=== PATIENT | female | born 1985 | race American Indian/Alaskan Native ===

== ENCOUNTER 2016-11-12 19:34 | Inpatient (IN) | payer OTHER ==
[2016-11-12] MEDS ORDERED: TYLENOL PO ONE (20:00)
[2016-11-12 20:23] LABS: Basophils % (Auto) 0.3 % (0.0-1.8); Eosinophils % (Auto) 0.7 % (0.0-4.3); Hematocrit 34.9 % (30.3-42.9); Hemoglobin 10.8 gm/dl (10.1-14.3); Mean Corpuscular HGB Conc 31 % (30-34); Platelet Count 341 K/mm3 (140-440); Red Blood Count 5.15 M/mm3 (3.65-5.03); Red Cell Distribution Width 19.2 % (13.2-15.2); White Blood Count 15.8 K/mm3 (4.5-11.0)
[2016-11-12 20:25] LABS: Mean Corpuscular Hemoglobin 21 pg (28-32); Mean Corpuscular Volume 68 fl (79-97)
[2016-11-12 21:07] LABS: Alanine Aminotransferase 8 units/L (7-56); Albumin 4.1 g/dL (3.9-5); Albumin/Globulin Ratio 1.1 %; Alkaline Phosphatase 64 units/L (35-129); Anion Gap 22 mmol/L; BUN/Creatinine Ratio 7.77; Bilirubin,Total 0.5 mg/dL (0.1-1.2); Blood Urea Nitrogen 7 mg/dL (7-17); Calcium 9.2 mg/dL (8.4-10.2); Carbon Dioxide 22 mmol/L (22-30); Chloride 99.3 mmol/L (98-107); Glucose 104 mg/dL (65-100); Lipase 15 units/L (13-60); Potassium 3.5 mmol/L (3.6-5.0); Sodium 140 mmol/L (137-145)
[2016-11-12 22:50] LABS: Bacteria,Urine 1+ /HPF (Negative); Bilirubin,Urine NEG (Negative); Blood,Urine MOD (Negative); Ketones,Urine NEG (Negative); Leukocyte Esterase,Urine NEG (Negative); Mucus,Urine FEW /HPF; Nitrite,Urine NEG (Negative); Protein,Urine <15 mg/dL mg/dL (Negative); Urobilinogen,Urine < 2.0 mg/dL (<2.0)
[2016-11-13] MEDS ORDERED: TYLENOL PO ONE (02:40)
[2016-11-13] MEDS ORDERED: SUBLIMAZE IV ONE (03:23)
[2016-11-13] MEDS ORDERED: NACL 0.9% 1000 ML 1,000 ML IV ONE (03:23)
[2016-11-13] MEDS ORDERED: ZOFRAN IV ONE (03:23)
--- NOTE | 2016-11-13 03:29 | Emergency Department Report ---
HPI - General Chief Complaint: Abdominal Pain Time Seen by Provider: 11/13/16 03:18 - HPI HPI: Room 7 The patient is a 31-year-old female presenting with a chief complaint flank/ right sided abdominal pain. Patient states for the past 4 days she has had a constant pain in her right abdomen. Patient admits to nausea but denies vomiting. Patient denies dysuria, hematuria, vaginal discharge or abnormal vaginal bleeding. Patient admits to subjective fever yesterday. Patient denies any previous episodes of the same pain. The patient currently gives her pain a score of 8/10 Location: Right abdomen Duration: 4 days Quality: Pain Severity: 8/10 Modifying factors: Movement increases pain Context: [see above] Mode of transportation: [not driving] ED Past Medical Hx - Past Medical History Hx Headaches / Migraines: Yes Hx Psychiatric Treatment: Yes (depression as a child) Additional medical history: uri - Surgical History Past Surgical History?: No Additional Surgical History: 4 c-sections - Family History Family history: no significant - Social History Smoking Status: Current Every Day Smoker (one pack per day) Substance Use Type: None (denies illicit drug use), Alcohol (occasional) - Medications Home Medications: Home Medications Medication Instructions Recorded Confirmed Last Taken Type Azithromycin [Zithromax Z-VAHID] 250 mg PO DAILY #6 tablet 10/21/13 Unknown Rx Benzonatate [Tessalon Perles] 100 mg PO BID PRN 7 Days 10/21/13 Unknown Rx Acetaminophen/Codeine [Tylenol #3] 1 tab PO Q6H PRN #21 tab 05/08/15 Unknown Rx Sulfamethoxazole/Trimethoprim 1 each PO BID #20 tablet 05/08/15 Unknown Rx [Bactrim DS TAB] Amoxicillin [Amoxicillin TAB] 875 mg PO BID #20 tablet 07/25/15 Unknown Rx Fluticasone [Flonase] 1 spray NS QDAY #1 bottle 07/25/15 Unknown Rx predniSONE [Deltasone] 20 mg PO QDAY #6 tab 07/25/15 Unknown Rx Sulfamethoxazole/Trimethoprim 1 each PO BID #20 tablet 09/02/15 Unknown Rx [Bactrim DS TAB] Acetaminophen/Codeine 1 tab PO Q6H PRN #20 tab 10/25/15 Unknown Rx [Acetaminophen-Codeine #3 TAB] Cyclobenzaprine [Flexeril 10 MG 10 mg PO TID PRN #30 tablet 10/25/15 Unknown Rx TAB] Ibuprofen [Motrin 600 MG tab] 600 mg PO Q8H PRN #40 tablet 10/25/15 Unknown Rx metroNIDAZOLE [Flagyl] 500 mg PO Q12HR #20 tab 10/25/15 Unknown Rx Naproxen [Naprosyn TAB] 500 mg PO BID #30 tablet 11/17/15 Unknown Rx traMADol [Ultram 50 MG tab] 50 mg PO Q6HR PRN #20 tablet 11/17/15 Unknown Rx Bacitracin Zinc Oint(Nf) 1 applicatio TP BID #1 tube 07/27/16 Unknown Rx [Antibiotic Oint(Nf)] Ferrous Sulfate [Feosol 325 MG tab] 325 mg PO QDAY #30 tablet 07/27/16 Unknown Rx Ibuprofen [Motrin] 800 mg PO Q8HR PRN #20 tablet 07/27/16 Unknown Rx ED Review of Systems ROS: Stated complaint: RT FLANK PAIN Other details as noted in HPI Comment: All other systems reviewed and negative Constitutional: fever (subjective) Eyes: denies: eye pain, eye discharge, vision change ENT: denies: ear pain, throat pain Respiratory: denies: cough, shortness of breath, wheezing Cardiovascular: denies: chest pain, palpitations Endocrine: no symptoms reported Gastrointestinal: abdominal pain, nausea. denies: vomiting Genitourinary: denies: urgency, dysuria, discharge, abnormal menses Musculoskeletal: denies: back pain, joint swelling, arthralgia Skin: denies: rash, lesions Neurological: denies: headache, weakness, paresthesias Psychiatric: denies: anxiety, depression Hematological/Lymphatic: denies: easy bleeding, easy bruising Physical Exam - Physical Exam Vital Signs: Vital Signs 11/12/16 19:46 Temperature 99.4 F Pulse Rate 123 H Respiratory 24 Rate Blood Pressure 130/72 Blood Pressure 130/72 [Right] O2 Sat by Pulse 100 Oximetry Physical Exam: GENERAL: The patient is well-developed well-nourished female lying on stretcher appearing to be in moderate discomfort. [] HEENT: Normocephalic. Atraumatic. Extraocular motions are intact. Patient has moist mucous membranes. NECK: Supple. Trachea midline CHEST/LUNGS: Clear to auscultation. There is no respiratory distress noted. HEART/CARDIOVASCULAR: Regular. There is no tachycardia. There is no gallop rub or murmur. ABDOMEN: Abdomen is soft, with tenderness to palpation in the right upper quadrant and right lower quadrant. Patient has normal bowel sounds. There is no abdominal distention. SKIN: There is no rash. There is no edema. There is no diaphoresis. NEURO: The patient is awake, alert, and oriented. The patient is cooperative. The patient has normal speech MUSCULOSKELETAL: There is no evidence of acute injury. ED Course Vital Signs 11/12/16 19:46 Temperature 99.4 F Pulse Rate 123 H Respiratory 24 Rate Blood Pressure 130/72 Blood Pressure 130/72 [Right] O2 Sat by Pulse 100 Oximetry ED Medical Decision Making - Lab Data Result diagrams: 11/12/16 20:09 11/12/16 20:09 Laboratory Tests 11/12/16 11/12/16 11/12/16 20:09 20:09 20:11 WBC 15.8 H RBC 5.15 H Hgb 10.8 Hct 34.9 MCV 68 L MCH 21 L MCHC 31 RDW 19.2 H Plt Count 341 Lymph % (Auto) 11.4 L [place] % (Auto) 11.3 H Eos % (Auto) 0.7 Baso % (Auto) 0.3 Lymph # 1.8 [place] # 1.8 H Eos # 0.1 Baso # 0.0 Seg Neutrophils % 76.3 H Seg Neutrophils # 12.1 H Sodium 140 Potassium 3.5 L Chloride 99.3 Carbon Dioxide 22 Anion Gap 22 BUN 7 Creatinine 0.9 Estimated GFR > 60 BUN/Creatinine Ratio 7.77 Glucose 104 H Calcium 9.2 Total Bilirubin 0.5 AST 10 ALT 8 Alkaline Phosphatase 64 Total Protein 8.0 Albumin 4.1 Albumin/Globulin Ratio 1.1 Lipase 15 HCG, Qual Negative Urine Color Urine Turbidity Urine pH Ur Specific [place] Urine Protein Urine Glucose (UA) Urine Ketones Urine Blood Urine Nitrite Urine Bilirubin Urine Urobilinogen Ur Leukocyte Esterase Urine WBC (Auto) Urine RBC (Auto) U Epithel Cells (Auto) Urine Bacteria (Auto) Urine Mucus Urine HCG, Qual 11/12/16 11/12/16 22:13 22:13 WBC RBC Hgb Hct MCV MCH MCHC RDW Plt Count Lymph % (Auto) [place] % (Auto) Eos % (Auto) Baso % (Auto) Lymph # [place] # Eos # Baso # Seg Neutrophils % Seg Neutrophils # Sodium Potassium Chloride Carbon Dioxide Anion Gap BUN Creatinine Estimated GFR BUN/Creatinine Ratio Glucose Calcium Total Bilirubin AST ALT Alkaline Phosphatase Total Protein Albumin Albumin/Globulin Ratio Lipase HCG, Qual Urine Color Yellow Urine Turbidity Clear Urine pH 6.0 Ur Specific [place] 1.002 L Urine Protein <15 mg/dl Urine Glucose (UA) Neg Urine Ketones Neg Urine Blood Mod Urine Nitrite Neg Urine Bilirubin Neg Urine Urobilinogen < 2.0 Ur Leukocyte Esterase Neg Urine WBC (Auto) 3.0 Urine RBC (Auto) 3.0 U Epithel Cells (Auto) < 1.0 Urine Bacteria (Auto) 1+ Urine Mucus Few Urine HCG, Qual Negative - Radiology Data Radiology results: report reviewed (CT abdomen and pelvis), image reviewed (CT abdomen and pelvis) - Differential Diagnosis acute appendicitis, renal colic, Critical care attestation.: If time is entered above; I have spent that time in minutes in the direct care of this critically ill patient, excluding procedure time. ED Disposition Clinical Impression: Pelvic fluid collection, Abnormal finding on diagnostic imaging of right kidney , Acute abdominal pain Disposition: OP ADMITTED IP TO THIS HOSP Is pt being admited?: Yes Does the pt Need Aspirin: No Condition: Fair Instructions: Abdominal Pain (ED) Referrals: PRIMARY CARE, [Primary Care Provider] - 3-5 Days Time of Disposition: 06:58 (hospitalist notified)
[2016-11-13] MEDS ORDERED: DILAUDID IV ONE (05:46)
--- NOTE | 2016-11-13 06:51 | Cat Scan Report ---
FINAL REPORT PROCEDURE: CT ABDOMEN PELVIS W CON TECHNIQUE: Computerized axial tomography of the abdomen and pelvis was performed after the IV injection of iodinated nonionic contrast. HISTORY: right flank, right lower quadrant abdominal pain COMPARISON: No prior studies are available for comparison. FINDINGS: Visualized lower thorax: There is minimal atelectasis in the lung bases.. Liver: Normal size and attenuation. Spleen: Normal size and attenuation. Gallbladder and biliary system: Normal. Pancreas: Normal. Adrenals: Normal. Kidneys: There is no CT evidence of renal ureteral stone or hydronephrosis. There is a 1.6 centimeter heterogenous slightly hypodense focus in the anterior mid upper right kidney. This is centered on image 58 of series 3 and image 15 of series 4. This measures above fluid in density. However this is a contrast scan only which makes density measurements difficult. However this does not appear to be a simple cyst. It could be a debris or hemorrhage filled cyst. However solid mass such as neoplasm is not excluded. It may even demonstrate some patchy enhancement.. GI tract: The bowel appears unremarkable when considering lack of oral contrast. The appendix is somewhat difficult to identify but I believe I do see it.. Lymph nodes and mesentery: Normal. Vasculature: Normal. Bladder: Normal. Reproductive organs: In the deep pelvis posterior to the uterus in the midline and slightly to the left of midline there is a somewhat curvilinear partially flattened fluid-filled structure with a moderately thick enhancing wall. This measures about 4.8 centimeters transverse by 1.5 centimeters AP by about 4.9 centimeter superior to inferior. Measurements are somewhat difficult due to its curvilinear shape conforming to the posterior aspect of the uterus or cervix. This is centered on image 142 of series 3. It is also seen on sagittal series 201, image 83. This is suspicious for abscess. The exact cause is uncertain. Peritoneum: No free fluid. Musculoskeletal structures: No significant abnormality. Other: None. IMPRESSION: 1. There is a fluid collection with an enhancing wall in the midline deep pelvis posterior to the uterus and the cervix. This has a somewhat curvilinear shape and measure roughly about 4.9 x 4.8 x 1.5 centimeters. This is suspicious for a abscess. The cause of this abscess is uncertain. It could be related to pelvic inflammatory disease. Abscess of other cause or fluid collection of other etiology is not excluded. Follow-up recommended. 2. Incidentally noted is a 1.6 centimeter heterogenous slightly hypodense focus in the right kidney as detailed above. This is measuring above simple fluid and may even show partial enhancement. This could be a debris or hemorrhage filled cyst. However a small solid lesion such as renal cell carcinoma or other tumor of the kidney is not excluded. Therefore further workup of this recommended. Given its small size it may be of benefit to further evaluate this with kidney MRI to see if this can help distinguish debris-filled cyst versus solid neoplastic lesion. If MRI is not possible or desired then a kidney ultrasound would be recommended. This finding is likely incidental and unrelated to the patient's acute symptoms but should still be followed up and further evaluated.
--- NOTE | 2016-11-13 07:23 | Admit Criteria Form ---
Admission Criteria Documentation: PELVIC INFLAMMATORY DISEASE (PID), ACUTE Clinical Indications for Admission to Inpatient Care (Place 'X' for any and all applicable criteria): Admission is indicated for PID with ANY ONE of the following (1)(2)(3)(4)(5): [ ]I. [ ]II. Failure of outpatient regimen [ ]III. Tubo-ovarian abscess [ ]IV. Immunodeficiency state (eg, HIV infection with low CD4 count, immunosuppressive therapy, other disease causing immunodeficiency) [ ]V. Bacteremia [ ]. Hemodynamic instability [X]VII. Inpatient admission required rather than observation care (Also use Pelvic Inflammatory Disease (PID), Acute: as appropriate) because of ANY ONE of the following: [ ]a) Vomiting that is severe or persistent [X]b) Severe pain requiring acute inpatient management [ ]c) Etiology or finding that requires inpatient management (eg, ovarian torsion, peritonitis) [ ]d) IV fluid required rather than oral rehydration to replace significant ongoing (eg, for greater than 24 hours) losses (greater than 200 mL/hr or 3 L/m2 per day) [ ]e) Other condition, treatment or monitoring requiring inpatient admission Extended stay beyond goal length of stay may be needed for (2)(14) [ ]a) Tubo-ovarian abscess, peritonitis, or continued pain, fever, tenderness, or leukocytosis The original [employer] content created by [employer] has been revised. The portions of the content which have been revised are identified through the use of italic text or in bold, and [facility] has neither reviewed nor approved the modified material. All other unmodified content is copyright [facility]. Please see references footnoted in the original [email or web address] edition 2016 Admission Criteria Met: Yes
--- NOTE | 2016-11-13 09:23 | History and Physical Report ---
History of Present Illness Date of examination: 11/13/16 History of present illness: The patient is a 31-year-old female presenting with a chief complaint flank/ right sided abdominal pain. Patient states for the past 4 days she has had a constant pain in her right abdomen. Patient admits to nausea but denies vomiting. Patient denies dysuria, hematuria, vaginal discharge or abnormal vaginal bleeding. Patient admits to subjective fever yesterday. Patient denies any previous episodes of the same pain. The patient currently gives her pain a score of 8/10 Medications and Allergies Allergies Allergy/AdvReac Type Severity Reaction Status Date / Time chlorpromazine HCl Allergy Swelling Verified 10/20/13 20:48 [From Thorazine] Home Medications Medication Instructions Recorded Confirmed Last Taken Type Azithromycin [Zithromax Z-VAHID] 250 mg PO DAILY #6 tablet 10/21/13 Unknown Rx Benzonatate [Tessalon Perles] 100 mg PO BID PRN 7 Days 10/21/13 Unknown Rx Acetaminophen/Codeine [Tylenol #3] 1 tab PO Q6H PRN #21 tab 05/08/15 Unknown Rx Sulfamethoxazole/Trimethoprim 1 each PO BID #20 tablet 05/08/15 Unknown Rx [Bactrim DS TAB] Amoxicillin [Amoxicillin TAB] 875 mg PO BID #20 tablet 07/25/15 Unknown Rx Fluticasone [Flonase] 1 spray NS QDAY #1 bottle 07/25/15 Unknown Rx predniSONE [Deltasone] 20 mg PO QDAY #6 tab 07/25/15 Unknown Rx Sulfamethoxazole/Trimethoprim 1 each PO BID #20 tablet 09/02/15 Unknown Rx [Bactrim DS TAB] Acetaminophen/Codeine 1 tab PO Q6H PRN #20 tab 10/25/15 Unknown Rx [Acetaminophen-Codeine #3 TAB] Cyclobenzaprine [Flexeril 10 MG 10 mg PO TID PRN #30 tablet 10/25/15 Unknown Rx TAB] Ibuprofen [Motrin 600 MG tab] 600 mg PO Q8H PRN #40 tablet 10/25/15 Unknown Rx metroNIDAZOLE [Flagyl] 500 mg PO Q12HR #20 tab 10/25/15 Unknown Rx Naproxen [Naprosyn TAB] 500 mg PO BID #30 tablet 11/17/15 Unknown Rx traMADol [Ultram 50 MG tab] 50 mg PO Q6HR PRN #20 tablet 11/17/15 Unknown Rx Bacitracin Zinc Oint(Nf) 1 applicatio TP BID #1 tube 07/27/16 Unknown Rx [Antibiotic Oint(Nf)] Ferrous Sulfate [Feosol 325 MG tab] 325 mg PO QDAY #30 tablet 07/27/16 Unknown Rx Ibuprofen [Motrin] 800 mg PO Q8HR PRN #20 tablet 07/27/16 Unknown Rx Review of Systems Genitourinary Female: pelvic pain, flank pain Exam - Constitutional Vitals: Temp Pulse Resp BP Pulse Ox 99.4 F 89 16 107/69 100 11/12/16 19:46 11/13/16 07:15 11/13/16 07:15 11/13/16 07:15 11/13/16 07:15 General appearance: Present: mild distress - EENT Eyes: Present: PERRL, EOM intact ENT: hearing intact, clear oral mucosa - Neck Neck: Present: supple, normal ROM - Respiratory Respiratory effort: normal Respiratory: bilateral: CTA - Cardiovascular Rhythm: regular Heart Sounds: Present: S1 & S2 - Extremities Extremities: no ischemia, No edema - Abdominal General gastrointestinal: Present: soft, tender, non-distended, normal bowel sounds, other (right flank tenderness) - Musculoskeletal Musculoskeletal: strength equal bilaterally - Psychiatric Psychiatric: appropriate mood/affect, intact judgment & insight - Neurologic Neurologic: CNII-XII intact, moves all extremities Results - Labs CBC & Chem 7: 11/12/16 20:09 11/12/16 20:09 Labs: Laboratory Last Values WBC 15.8 K/mm3 (4.5-11.0) H 11/12/16 20:09 RBC 5.15 M/mm3 (3.65-5.03) H 11/12/16 20:09 Hgb 10.8 gm/dl (10.1-14.3) 11/12/16 20:09 Hct 34.9 % (30.3-42.9) 11/12/16 20:09 MCV 68 fl (79-97) L 11/12/16 20:09 MCH 21 pg (28-32) L 11/12/16 20:09 MCHC 31 % (30-34) 11/12/16 20:09 RDW 19.2 % (13.2-15.2) H 11/12/16 20:09 Plt Count 341 K/mm3 (140-440) 11/12/16 20:09 Lymph % (Auto) 11.4 % (13.4-35.0) L 11/12/16 20:09 [place] % (Auto) 11.3 % (0.0-7.3) H 11/12/16 20:09 Eos % (Auto) 0.7 % (0.0-4.3) 11/12/16 20:09 Baso % (Auto) 0.3 % (0.0-1.8) 11/12/16 20:09 Lymph # 1.8 K/mm3 (1.2-5.4) 11/12/16 20:09 [place] # 1.8 K/mm3 (0.0-0.8) H 11/12/16 20:09 Eos # 0.1 K/mm3 (0.0-0.4) 11/12/16 20:09 Baso # 0.0 K/mm3 (0.0-0.1) 11/12/16 20:09 Seg Neutrophils % 76.3 % (40.0-70.0) H 11/12/16 20:09 Seg Neutrophils # 12.1 K/mm3 (1.8-7.7) H 11/12/16 20:09 Sodium 140 mmol/L (137-145) 11/12/16 20:09 Potassium 3.5 mmol/L (3.6-5.0) L 11/12/16 20:09 Chloride 99.3 mmol/L (98-107) 11/12/16 20:09 Carbon Dioxide 22 mmol/L (22-30) 11/12/16 20:09 Anion Gap 22 mmol/L 11/12/16 20:09 BUN 7 mg/dL (7-17) 11/12/16 20:09 Creatinine 0.9 mg/dL (0.7-1.2) 11/12/16 20:09 Estimated GFR > 60 ml/min 11/12/16 20:09 BUN/Creatinine Ratio 7.77 % 11/12/16 20:09 Glucose 104 mg/dL (65-100) H 11/12/16 20:09 Calcium 9.2 mg/dL (8.4-10.2) 11/12/16 20:09 Total Bilirubin 0.5 mg/dL (0.1-1.2) 11/12/16 20:09 AST 10 units/L (5-40) 11/12/16 20:09 ALT 8 units/L (7-56) 11/12/16 20:09 Alkaline Phosphatase 64 units/L (35-129) 11/12/16 20:09 Total Creatine Kinase 46 units/L (30-135) 11/12/16 20:09 Total Protein 8.0 g/dL (6.3-8.2) 11/12/16 20:09 Albumin 4.1 g/dL (3.9-5) 11/12/16 20:09 Albumin/Globulin Ratio 1.1 % 11/12/16 20:09 Lipase 15 units/L (13-60) 11/12/16 20:09 HCG, Qual Negative (Negative) 11/12/16 20:11 Urine Color Yellow (Yellow) 11/12/16 22:13 Urine Turbidity Clear (Clear) 11/12/16 22:13 Urine pH 6.0 (5.0-7.0) 11/12/16 22:13 Ur Specific [place] 1.002 (1.003-1.030) L 11/12/16 22:13 Urine Protein <15 mg/dl mg/dL (Negative) 11/12/16 22:13 Urine Glucose (UA) Neg mg/dL (Negative) 11/12/16 22:13 Urine Ketones Neg mg/dL (Negative) 11/12/16 22:13 Urine Blood Mod (Negative) 11/12/16 22:13 Urine Nitrite Neg (Negative) 11/12/16 22:13 Urine Bilirubin Neg (Negative) 11/12/16 22:13 Urine Urobilinogen < 2.0 mg/dL (<2.0) 11/12/16 22:13 Ur Leukocyte Esterase Neg (Negative) 11/12/16 22:13 Urine WBC (Auto) 3.0 /HPF (0.0-6.0) 11/12/16 22:13 Urine RBC (Auto) 3.0 /HPF (0.0-6.0) 11/12/16 22:13 U Epithel Cells (Auto) < 1.0 /HPF (0-13.0) 11/12/16 22:13 Urine Bacteria (Auto) 1+ /HPF (Negative) 11/12/16 22:13 Urine Mucus Few /HPF 11/12/16 22:13 Urine HCG, Qual Negative (Negative) 11/12/16 22:13 Assessment and Plan - Patient Problems (1) Pelvic mass in female Current Visit: Yes Status: Acute Plan to address problem: Patient presented with right flank pain and CT scan of the abdomen and pelvis shows a right pelvic mass versus pelvic abscess. Possibly related to pelvic inflammatory disease. We'll start on IV antibiotics. We will get [employer] consult and surgical evaluation (2) Abnormal finding on diagnostic imaging of right kidney Current Visit: Yes Status: Acute Plan to address problem: Of incidental note, there is an possible right kidney cyst. We will get nephrology involvement (3) Acute abdominal pain Current Visit: Yes Status: Acute Plan to address problem: Acute abdominal pain possibly related to right pelvic mass versus abscess. We will start workup. Will continue IV pain meds
[2016-11-13] MEDS: D5NS 1,000 ML IV SCH ×2 (09:52→19:27)
[2016-11-13] MEDS: PERCOCET 5/325 PO PRN (09:52)
[2016-11-13] MEDS ORDERED: LOVENOX SUB-Q SCH (10:00)
[2016-11-13] MEDS ORDERED: ROCEPHIN/NS 2 GM/100 ML 2 GM/100 ML BAG IV SCH ×2 (10:00→11:30)
[2016-11-13] MEDS ORDERED: DULCOLAX PR PRN (10:00)
[2016-11-13] MEDS ORDERED: TYLENOL PO PRN (10:00)
[2016-11-13] MEDS ORDERED: FLEXERIL PO PRN (10:30)
[2016-11-13] MEDS ORDERED: MILK OF MAGNESIA PO PRN (10:30)
[2016-11-13] MEDS ORDERED: ULTRAM PO PRN (11:00)
[2016-11-13] MEDS ORDERED: DOXYCYCLINE HYCLATE 100 MG in NACL 0.9% 250ML 250 ML IV SCH (11:00)
[2016-11-13] MEDS: LOVENOX SUB-Q SCH (11:38)
[2016-11-13] MEDS: FEOSOL PO SCH (11:38)
[2016-11-13] MEDS: MORPHINE IV PRN ×2 (15:35→20:03)
--- NOTE | 2016-11-13 20:13 | Event Note ---
Date: 11/13/16 Received page for consult at 8pm. After review of chart recommend changing antibiotics to Ampicillin 2 gm iv q6, Gentamicin 80 mg iv q 8 and Cleocin 900mg iv q 8. This will better cover a pelvic abscess. Recommend pelvic sono to better evaluate possible abscess. Will peform full consult in am.
[2016-11-13] MEDS: GARAMYCIN/NS 80 MG/100 ML 100 ML IV SCH (22:30)
[2016-11-13] MEDS: CLEOCIN 900 MG/50 mL 900 MG/50 ML BAG IV SCH (23:00)
[2016-11-13] MEDS: ZOFRAN IV PRN (23:19)
[2016-11-14] MEDS: AMBIEN PO PRN (00:33)
[2016-11-14] MEDS: POLYCILLIN/NS 2 GM/100 ML 2 GM/100 ML BAG IV SCH ×4 (00:33→18:57)
[2016-11-14 05:05] LABS: Hemoglobin 8.6 gm/dl (10.1-14.3); Mean Corpuscular HGB Conc 32 % (30-34); Platelet Count 246 K/mm3 (140-440); Red Blood Count 4.01 M/mm3 (3.65-5.03); Red Cell Distribution Width 18.6 % (13.2-15.2); White Blood Count 8.3 K/mm3 (4.5-11.0)
[2016-11-14 05:13] LABS: Mean Corpuscular Hemoglobin 21 pg (28-32); Mean Corpuscular Volume 67 fl (79-97)
[2016-11-14] MEDS: MORPHINE IV PRN ×3 (05:22→14:29)
[2016-11-14 05:23] LABS: Alanine Aminotransferase 7 units/L (7-56); Albumin 2.8 g/dL (3.9-5); Albumin/Globulin Ratio 0.9 %; Alkaline Phosphatase 47 units/L (35-129); Anion Gap 15 mmol/L; BUN/Creatinine Ratio 4.28; Bilirubin,Total 0.2 mg/dL (0.1-1.2); Blood Urea Nitrogen 3 mg/dL (7-17); Calcium 7.5 mg/dL (8.4-10.2); Carbon Dioxide 22 mmol/L (22-30); Chloride 103.2 mmol/L (98-107); Glucose 91 mg/dL (65-100); Sodium 137 mmol/L (137-145)
[2016-11-14] MEDS: GARAMYCIN/NS 80 MG/100 ML 100 ML IV SCH (05:23)
[2016-11-14] MEDS: CLEOCIN 900 MG/50 mL 900 MG/50 ML BAG IV SCH ×3 (06:15→21:00)
[2016-11-14 06:23] LABS: Basophils % (Manual) 0 % (0.0-1.8); Blastocytes % (Manual) 0 %
[2016-11-14 06:24] LABS: Diff Status Complete; Elliptocytes 1+; Hypochromasia 2+; Microcytosis 1+; Polychromasia Few; Smudge Cells Few; Tear Drop Cells Rare
--- NOTE | 2016-11-14 07:21 | Consultation ---
History of Present Illness Consult date: 11/21/16 Requesting physician: ROSE PALOMINO Reason for consult: pelvic pain, other (pelvic abscess) History of present illness: Patient states abdominal pain and fever x 5 days. Pain has gotten progressively worse. Patient admits to nausea but no vomiting. Patient denies discharge. does not have a new partner. LMP 11/12/16-current. 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 patient receant pap and cultures which were negative) Medications and Allergies Allergies Allergy/AdvReac Type Severity Reaction Status Date / Time chlorpromazine HCl Allergy Swelling Verified 10/20/13 20:48 [From Thorazine] Home Medications Medication Instructions Recorded Confirmed Last Taken Type Azithromycin [Zithromax Z-VAHID] 250 mg PO DAILY #6 tablet 10/21/13 Unknown Rx Benzonatate [Tessalon Perles] 100 mg PO BID PRN 7 Days 10/21/13 Unknown Rx Acetaminophen/Codeine [Tylenol #3] 1 tab PO Q6H PRN #21 tab 05/08/15 Unknown Rx Sulfamethoxazole/Trimethoprim 1 each PO BID #20 tablet 05/08/15 Unknown Rx [Bactrim DS TAB] Amoxicillin [Amoxicillin TAB] 875 mg PO BID #20 tablet 07/25/15 Unknown Rx Fluticasone [Flonase] 1 spray NS QDAY #1 bottle 07/25/15 Unknown Rx predniSONE [Deltasone] 20 mg PO QDAY #6 tab 07/25/15 Unknown Rx Sulfamethoxazole/Trimethoprim 1 each PO BID #20 tablet 09/02/15 Unknown Rx [Bactrim DS TAB] Acetaminophen/Codeine 1 tab PO Q6H PRN #20 tab 10/25/15 Unknown Rx [Acetaminophen-Codeine #3 TAB] Cyclobenzaprine [Flexeril 10 MG 10 mg PO TID PRN #30 tablet 10/25/15 Unknown Rx TAB] Ibuprofen [Motrin 600 MG tab] 600 mg PO Q8H PRN #40 tablet 10/25/15 Unknown Rx metroNIDAZOLE [Flagyl] 500 mg PO Q12HR #20 tab 10/25/15 Unknown Rx Naproxen [Naprosyn TAB] 500 mg PO BID #30 tablet 02/24/16 Unknown Rx traMADol [Ultram 50 MG tab] 50 mg PO Q6HR PRN #20 tablet 11/17/15 Unknown Rx Bacitracin Zinc Oint(Nf) 1 applicatio TP BID #1 tube 07/27/16 Unknown Rx [Antibiotic Oint(Nf)] Ferrous Sulfate [Feosol 325 MG tab] 325 mg PO QDAY #30 tablet 07/27/16 Unknown Rx Ibuprofen [Motrin] 800 mg PO Q8HR PRN #20 tablet 07/27/16 Unknown Rx Active Meds: Active Medications Acetaminophen (Tylenol) 650 mg PO Q4H PRN PRN Reason: Pain MILD(1-3)/Fever >100.5/SLAUGHTER Last Admin: 11/13/16 17:24 Dose: 650 mg Bisacodyl (Dulcolax) 10 mg MI QDAY PRN PRN Reason: Constipation unrelieved by MOM Cyclobenzaprine HCl (Flexeril) 10 mg PO TID PRN PRN Reason: Muscle Spasm Enoxaparin Sodium (Lovenox) 40 mg SUB-Q QDAY@1000 SIRI Last Admin: 11/13/16 11:38 Dose: 40 mg Ferrous Sulfate (Feosol) 325 mg PO QDAY [facility] Last Admin: 11/13/16 11:38 Dose: 325 mg Dextrose/Sodium Chloride (D5ns) 1,000 mls @ 125 mls/hr IV DIRECT [facility] Last Admin: 11/13/16 19:27 Dose: 125 mls/hr Ampicillin Sodium (Polycillin/Ns 2 Gm/100 Ml) 2 gm in 100 mls @ 100 mls/hr IV Q6HR [facility] Stop: 11/15/16 18:59 Last Admin: 11/14/16 00:33 Dose: 100 mls/hr Clindamycin HCl (Cleocin 900 Mg/50 Ml) 900 mg in 50 mls @ 100 mls/hr IV Q8HR [facility] PRN Reason: Protocol Last Admin: 11/14/16 06:15 Dose: 100 mls/hr Gentamicin Sulfate/Sodium Chloride (Garamycin/Ns 80 Mg/100 Ml) 100 mls @ 200 mls/hr IV Q8H [facility] Last Admin: 11/14/16 05:23 Dose: 200 mls/hr Potassium Chloride (Kcl 10meq/100ml) 10 meq in 100 mls @ 100 mls/hr IV Q1H [facility] Stop: 11/14/16 09:59 Influenza Virus Vaccine Quadrival (Fluarix Quad [id number](36 Mos+)) 60 mcg IM .ONCE ONE Stop: 11/14/16 12:01 Magnesium Hydroxide (Milk Of Magnesia) 30 ml PO Q4H PRN PRN Reason: Constipation Morphine Sulfate (Morphine) 2 mg IV Q4H PRN PRN Reason: Pain, Moderate (4-6) Last Admin: 11/14/16 05:22 Dose: 2 mg Ondansetron HCl (Zofran) 4 mg IV Q8H PRN PRN Reason: Nausea And Vomiting Last Admin: 11/13/16 23:19 Dose: 4 mg Oxycodone/Acetaminophen (Percocet 5/325) 1 tab PO Q6H PRN PRN Reason: Pain, Moderate (4-6) Last Admin: 11/13/16 09:52 Dose: 1 tab Tramadol HCl (Ultram) 50 mg PO Q6H PRN PRN Reason: Pain Last Admin: 11/13/16 23:12 Dose: 50 mg Zolpidem Tartrate (Ambien) 5 mg PO QHS PRN PRN Reason: Sleep Last Admin: 11/14/16 00:33 Dose: 5 mg Review of Systems All systems: negative Constitutional: poor appetite, other (nausea) Gastrointestinal: abdominal pain - Vital Signs Vital signs: Vital Signs Temp Pulse Resp BP Pulse Ox 99.4 F 123 H 24 130/72 100 11/12/16 19:46 11/12/16 19:46 11/12/16 19:46 11/12/16 19:46 11/12/16 19:46 Temp Pulse Resp BP Pulse Ox 99.1 F 75 18 119/76 100 11/13/16 22:40 11/13/16 22:40 11/13/16 22:40 11/13/16 22:40 11/13/16 22:40 - Physical Exam Breasts: Positive: deferred Cardiovascular: Regular rate, Normal S1, Normal S2 Lungs: Positive: Clear to auscultation Abdomen: Positive: normal appearance, soft, tenderness (tenderness is right sided. no rebound. ), normal bowel sounds. Negative: distention Vulva: both: normal Vagina: Positive: normal moisture. Negative: discharge Cervix: Positive: other (There is no evidence of cervical motion tenderness on exam, no left sided tenderness. Tenderness is more right flank extending medially. ). Negative: lesion, discharge Uterus: Positive: normal size, normal contour Adnexa: both: normal Anus/Rectum: Positive: normal perianal skin, heme negative. Negative: rectal mass, hemorrhoids Extremities: Deep Tendon Reflex Grade: Normal +2 Results Result Diagrams: 11/14/16 04:08 11/14/16 04:07 Abnormal lab results 11/14/16 11/14/16 Range/Units 04:07 04:08 Hgb 8.6 L (10.1-14.3) gm/dl Hct 27.0 L D (30.3-42.9) % MCV 67 L (79-97) fl MCH 21 L (28-32) pg RDW 18.6 H (13.2-15.2) % Monocytes % (Manual) 9.0 H (0.0-7.3) % Potassium 3.0 L (3.6-5.0) mmol/L BUN 3 L (7-17) mg/dL Calcium 7.5 L D (8.4-10.2) mg/dL Total Protein 6.0 L D (6.3-8.2) g/dL Albumin 2.8 L (3.9-5) g/dL All other labs normal. Assessment and Plan HD 2, for Right sided abdominal pain, pelvic mass/ abscess. Assessment- PID/ with pelvic abscess very unlikely for this patient since she has had a tubal ligation and the pain and tenderness is only right sided. Appendicitis is more likely in this patient. Thank you for the consult.
[2016-11-14] MEDS: LOVENOX SUB-Q SCH (09:27)
[2016-11-14] MEDS: FEOSOL PO SCH (09:27)
[2016-11-14] MEDS: KCL 10MEQ/100ML 10 MEQ/100 ML BAG IV SCH ×3 (09:29→16:47)
[2016-11-14] MEDS: ZOFRAN IV PRN ×2 (09:39→21:02)
[2016-11-14] MEDS: D5NS 1,000 ML IV SCH (11:38)
[2016-11-14] MEDS ORDERED: FLUARIX QUAD 2016-2017(36 MOS+) IM ONE (12:00)
--- NOTE | 2016-11-14 13:49 | Progress Note ---
Assessment and Plan Assessment and Plan 1. Pelvic mass versus Pelvic abscess: Presently on IV antibiotics. 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 Thinks etiology of right sided abdominal pain is appendicitis. Will consult surgery. 2. Abdominal pain likely secondary to #1: Presently on IV antibiotics and pain meds. Will consult surgery. 3. Hypokalemia: Will replete. 4. Possible Right kidney cyst: Will consider MRI or US of right kidney as recommended. Subjective Date of service: 11/14/16 Principal diagnosis: Flank pain, Pelvic mass Interval history: Still has right sided abdominal pain that is controlled with pain meds. Objective - Constitutional Vitals: Vital Signs - 12hr 11/14/16 11/14/16 07:10 10:00 Temperature 99.6 F Pulse Rate [ 80 Right] Respiratory 16 Rate Blood Pressure 108/68 [Right Arm] O2 Sat by Pulse 100 99 Oximetry General appearance: Present: no acute distress, well-nourished - EENT Eyes: PERRL, EOM intact ENT: hearing intact, clear oral mucosa Ears: bilateral: normal - Neck Neck: supple, normal ROM - Respiratory Respiratory effort: normal Respiratory: bilateral: CTA - Breasts Breasts: normal - Cardiovascular Rhythm: regular Heart Sounds: Present: S1 & S2. Absent: gallop, rub Extremities: pulses intact, No edema, normal color, Full ROM - Gastrointestinal General gastrointestinal: Present: soft, non-tender, non-distended, normal bowel sounds - Genitourinary Female genitourinary: normal - Integumentary Integumentary: clear, warm, dry - Musculoskeletal Musculoskeletal: 1, strength equal bilaterally - Neurologic Neurologic: moves all extremities - Psychiatric Psychiatric: memory intact, appropriate mood/affect, intact judgment & insight - Labs CBC & Chem 7: 11/14/16 04:08 11/14/16 04:07 Labs: Abnormal lab results 11/14/16 11/14/16 Range/Units 04:07 04:08 Hgb 8.6 L (10.1-14.3) gm/dl Hct 27.0 L D (30.3-42.9) % MCV 67 L (79-97) fl MCH 21 L (28-32) pg RDW 18.6 H (13.2-15.2) % Monocytes % (Manual) 9.0 H (0.0-7.3) % Potassium 3.0 L (3.6-5.0) mmol/L BUN 3 L (7-17) mg/dL Calcium 7.5 L D (8.4-10.2) mg/dL Total Protein 6.0 L D (6.3-8.2) g/dL Albumin 2.8 L (3.9-5) g/dL
[2016-11-14] MEDS: PERCOCET 5/325 PO PRN (16:02)
[2016-11-14] MEDS ORDERED: GARAMYCIN 300 MG in NACL 0.9% 100 ML IV SCH (18:00)
[2016-11-14] MEDS ORDERED: ATIVAN IV PRN (21:32)
[2016-11-14] MEDS: PROTONIX IV SCH (21:54)
[2016-11-15] MEDS: POLYCILLIN/NS 2 GM/100 ML 2 GM/100 ML BAG IV SCH ×4 (01:00→18:11)
[2016-11-15] MEDS: MORPHINE IV PRN ×6 (01:31→23:35)
[2016-11-15] MEDS: D5NS 1,000 ML IV SCH ×2 (05:28→18:14)
[2016-11-15] MEDS: CLEOCIN 900 MG/50 mL 900 MG/50 ML BAG IV SCH ×3 (05:29→22:39)
[2016-11-15] MEDS: ZOFRAN IV PRN ×2 (05:30→13:24)
--- NOTE | 2016-11-15 08:56 | Ultrasound Report ---
ULTRASOUND PELVIC COMPLETE: ULTRASOUND TRANSVAGINAL: HISTORY: Right pelvic pain, possible abscess on CT. TECHNIQUE: Transabdominal and transvaginal ultrasound imaging with color Doppler interrogation. FINDINGS: The CT abdomen and pelvis with contrast dated 11/13/16 was reviewed. In my opinion, the curvilinear fluid collection described within the pelvis represents fluid within the vaginal canal. Please correlate with the patient's menstrual status. This is not consistent with an abscess in my opinion. The uterus is anteverted and measures 11 x 4 x 6 cm. No uterine fibroids are identified. The endometrial stripe is normal thickness measuring approximately 5 mm. There is trace fluid and debris within the endometrial canal suggestive of menstruation products. No mass or polyp is appreciated. The right ovary measures 3.8 x 1.9 x 2.6 cm. The left ovary measures 4.8 x 1.7 x 4.3 cm. Normal-appearing follicles are identified bilaterally. There is trace fluid in the cul-de-sac which appears physiologic. Normal cervix. IMPRESSION: Essentially normal transabdominal and transvaginal pelvic ultrasounds. No fluid collection consistent with abscess is detected. I believe the previously described fluid collection seen on CT actually represents fluid within the vaginal canal. Please correlate with the patient's menstrual status.
[2016-11-15 09:03] LABS: Anion Gap 18 mmol/L; Blood Urea Nitrogen 2 mg/dL (7-17); Calcium 8.1 mg/dL (8.4-10.2); Carbon Dioxide 24 mmol/L (22-30); Chloride 100.9 mmol/L (98-107); Glucose 94 mg/dL (65-100); Potassium 3.2 mmol/L (3.6-5.0); Sodium 140 mmol/L (137-145)
[2016-11-15] MEDS: LOVENOX SUB-Q SCH (09:58)
[2016-11-15] MEDS: FEOSOL PO SCH (09:59)
[2016-11-15] MEDS: PROTONIX IV SCH (09:59)
--- NOTE | 2016-11-15 12:07 | Progress Note ---
Assessment and Plan Assessment and Plan 1. Pelvic mass versus Pelvic abscess: Transabdominal and transvaginal pelvic ultrasound showed no fluid collection consistent with abscess, previously described fluid collection seen on CT represents fluid within the vaginal canal. Presently on IV antibiotics. Surgical consult. 2. Abdominal pain likely secondary to #1: Surgical consult. Presently on IV antibiotics and pain meds. 3. Hypokalemia: Will continue to replete. Subjective Date of service: 11/15/16 Principal diagnosis: Flank pain, Pelvic mass Interval history: No overnight events. Objective - Constitutional Vitals: Vital Signs - 12hr 11/15/16 11/15/16 07:55 09:33 Temperature 98.6 F Pulse Rate [ 77 Right] Respiratory 16 Rate Blood Pressure 113/77 [Right Arm] O2 Sat by Pulse 99 99 Oximetry General appearance: Present: no acute distress, well-nourished - EENT Eyes: PERRL, EOM intact ENT: hearing intact, clear oral mucosa Ears: bilateral: normal - Neck Neck: supple, normal ROM - Respiratory Respiratory effort: normal Respiratory: bilateral: CTA - Breasts Breasts: normal - Cardiovascular Rhythm: regular Heart Sounds: Present: S1 & S2. Absent: gallop, rub Extremities: pulses intact, No edema, normal color, Full ROM - Gastrointestinal General gastrointestinal: Present: soft, non-tender, non-distended, normal bowel sounds - Genitourinary Female genitourinary: normal - Integumentary Integumentary: clear, warm, dry - Musculoskeletal Musculoskeletal: 1, strength equal bilaterally - Neurologic Neurologic: moves all extremities - Psychiatric Psychiatric: memory intact, appropriate mood/affect, intact judgment & insight - Labs CBC & Chem 7: 11/14/16 04:08 11/15/16 08:21 Labs: Abnormal lab results 11/15/16 Range/Units 08:21 Potassium 3.2 L (3.6-5.0) mmol/L BUN 2 L (7-17) mg/dL Calcium 8.1 L (8.4-10.2) mg/dL
[2016-11-15] MEDS: K-DUR PO SCH (15:21)
[2016-11-15] MEDS: PROTONIX PO SCH (22:42)
[2016-11-15] MEDS: GARAMYCIN 300 MG in NACL 0.9% 100 ML IV SCH (23:32)
--- NOTE | 2016-11-16 00:12 | Progress Note ---
Subjective Narrative: Pt was seen this AM for RT flank pain CT ,US all negative , a small ? lesion Rt kidney cyst ? doubt if it is the source of the pain , Abd soft and mary gn Muscle spasm ?? for a MRI Rt kidney in AM . Objective Vital Signs - 12hr 11/15/16 15:55 Temperature 99 F Pulse Rate [ 64 Right] Respiratory 15 Rate Blood Pressure 118/86 [Right Arm] O2 Sat by Pulse 100 Oximetry - Labs 11/14/16 04:08 11/15/16 08:21 Diabetes panel 11/15/16 Range/Units 08:21 Sodium 140 (137-145) mmol/L Potassium 3.2 L (3.6-5.0) mmol/L Chloride 100.9 (98-107) mmol/L Carbon Dioxide 24 (22-30) mmol/L BUN 2 L (7-17) mg/dL Creatinine 0.8 (0.7-1.2) mg/dL Glucose 94 (65-100) mg/dL Calcium 8.1 L (8.4-10.2) mg/dL Calcium panel 11/15/16 Range/Units 08:21 Calcium 8.1 L (8.4-10.2) mg/dL Pituitary panel 11/15/16 Range/Units 08:21 Sodium 140 (137-145) mmol/L Potassium 3.2 L (3.6-5.0) mmol/L Chloride 100.9 (98-107) mmol/L Carbon Dioxide 24 (22-30) mmol/L BUN 2 L (7-17) mg/dL Creatinine 0.8 (0.7-1.2) mg/dL Glucose 94 (65-100) mg/dL Calcium 8.1 L (8.4-10.2) mg/dL Adrenal panel 11/15/16 Range/Units 08:21 Sodium 140 (137-145) mmol/L Potassium 3.2 L (3.6-5.0) mmol/L Chloride 100.9 (98-107) mmol/L Carbon Dioxide 24 (22-30) mmol/L BUN 2 L (7-17) mg/dL Creatinine 0.8 (0.7-1.2) mg/dL Glucose 94 (65-100) mg/dL Calcium 8.1 L (8.4-10.2) mg/dL
[2016-11-16] MEDS: PERCOCET 5/325 PO PRN (01:49)
[2016-11-16] MEDS: CLEOCIN 900 MG/50 mL 900 MG/50 ML BAG IV SCH ×3 (06:32→22:05)
[2016-11-16] MEDS: D5NS 1,000 ML IV SCH (06:33)
[2016-11-16] MEDS: MORPHINE IV PRN ×4 (06:33→22:09)
[2016-11-16] MEDS: FEOSOL PO SCH (10:06)
[2016-11-16] MEDS: K-DUR PO SCH (10:06)
[2016-11-16] MEDS: LOVENOX SUB-Q SCH (10:32)
[2016-11-16] MEDS: PROTONIX PO SCH ×2 (10:32→22:07)
--- NOTE | 2016-11-16 11:03 | Progress Note ---
Assessment and Plan Assessment and Plan 1. Abdominal pain: CT scan and US were unremarkable. Surgery following. Presently on pain meds. 2. Renal cyst: For MRI. 3. Hypokalemia: will supplement Subjective Date of service: 11/16/16 Principal diagnosis: Flank pain, Pelvic mass Interval history: Still having flank pain. Objective - Constitutional Vitals: Vital Signs - 12hr 11/16/16 11/16/16 00:00 10:00 Temperature 97.9 F Pulse Rate [ 53 L Right Dorsalis Pedis] Respiratory 18 Rate Blood Pressure 116/70 [Left Arm] O2 Sat by Pulse 100 100 Oximetry General appearance: Present: no acute distress, well-nourished - EENT Eyes: PERRL, EOM intact ENT: hearing intact, clear oral mucosa Ears: bilateral: normal - Neck Neck: supple, normal ROM - Respiratory Respiratory effort: normal Respiratory: bilateral: CTA - Breasts Breasts: normal - Cardiovascular Rhythm: regular Heart Sounds: Present: S1 & S2. Absent: gallop, rub Extremities: pulses intact, No edema, normal color, Full ROM - Gastrointestinal General gastrointestinal: Present: soft, non-tender, non-distended, normal bowel sounds - Genitourinary Female genitourinary: normal - Integumentary Integumentary: clear, warm, dry - Musculoskeletal Musculoskeletal: 1, strength equal bilaterally - Neurologic Neurologic: moves all extremities - Psychiatric Psychiatric: memory intact, appropriate mood/affect, intact judgment & insight - Labs CBC & Chem 7: 11/14/16 04:08 11/15/16 08:21
--- NOTE | 2016-11-16 12:58 | Progress Note ---
Subjective Narrative: Pt In MRI will check , talked to to ? 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 If MRI negative , she may go home. Objective Vital Signs - 12hr 11/16/16 11/16/16 08:14 10:00 Temperature 98.0 F Pulse Rate [ 51 L Right Dorsalis Pedis] Respiratory 16 Rate Blood Pressure 90/51 [Left Arm] O2 Sat by Pulse 98 100 Oximetry - Labs 11/14/16 04:08 11/15/16 08:21
--- NOTE | 2016-11-16 16:07 | Magnetic Resonance Report ---
MRI of the abdomen with and without contrast. History: Right renal lesion seen on CT, right flank pain. Procedure: A multiplanar multisequence study was performed with and without contrast. Findings: The liver, spleen, pancreas, and left kidney appear normal. The precontrast study demonstrates equivocal small area of signal abnormality in the upper pole of the right kidney which is more pronounced on the postcontrast sequences. There are areas of hypoperfusion in the lateral aspect of the upper pole of the right kidney. The overall size of the diminished signal in this region has decreased compared to the recent abdominal CT performed on November 13. The abnormality now measures approximately 1 cm in total diameter compared to 1.6 cm on the recent CT. There is no exophytic component. There is minimal fluid in the pararenal space on the right. The remainder of the right kidney is normal. There is a round hypointense area in the gallbladder seen best on the T2 weighted sequence. This may represent a gallstone. There is no evidence of biliary dilatation. Impression: 1. A small lesion in the lateral aspect of the upper pole the right kidney demonstrates very subtle signal abnormality with hypoperfusion on the postcontrast study. Compared to an abdominal CT performed on November 13, this lesion has decreased in size and may represent a resolving infectious process. If clinically appropriate, a followup renal ultrasound or CT of the abdomen may be useful after appropriate medical management. 2. Possible gallstone. Correlation with gallbladder ultrasound is recommended.
[2016-11-16] MEDS: AMBIEN PO PRN (22:07)
[2016-11-16] MEDS: KCL 10MEQ/100ML 10 MEQ/100 ML BAG IV SCH (22:16)
[2016-11-16] MEDS: GARAMYCIN 300 MG in NACL 0.9% 100 ML IV SCH (22:44)
[2016-11-17] MEDS: KCL 10MEQ/100ML 10 MEQ/100 ML BAG IV SCH (00:22)
[2016-11-17] MEDS: CLEOCIN 900 MG/50 mL 900 MG/50 ML BAG IV SCH (05:09)
[2016-11-17] MEDS: MORPHINE IV PRN ×2 (07:00→10:27)
[2016-11-17 07:55] VITALS: BP 106/68
--- NOTE | 2016-11-17 10:18 | Discharge Summary ---
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 Hospitalization Condition: Fair Disposition: DISCHARGED TO HOME OR SELFCARE Time spent for discharge: 35 mins Core Measure Documentation - Palliative Care Palliative Care/ Comfort Measures: Not Applicable - Core Measures Any of the following diagnoses?: none - VTE Discharge Requirements Deep Vein Thrombosis/Pulmonary Embolism Present on Admission: No Exam - Constitutional Vitals: Temp Pulse Resp BP Pulse Ox 98.5 F 58 L 16 106/68 98 11/17/16 07:53 11/17/16 07:53 11/17/16 07:53 11/17/16 07:53 11/17/16 07:53 Plan Activity: advance as tolerated, fall precautions Diet: low fat Special Instructions: record daily BP diary Follow up with: MELIDA PEREZ MD [Primary Care Provider] - 3-5 Days KELLY DAWN MD [Staff Physician] - 7 Days Prescriptions: Ciprofloxacin HCl [Ciprofloxacin TAB] 500 mg PO Q12HR #14 tab Ketorolac [Toradol] 10 mg PO Q6H PRN #14 tablet PRN Reason: Pain metroNIDAZOLE [Flagyl TAB] 500 mg PO Q12HR #20 tab Naproxen [Naprosyn TAB] 500 mg PO BID #30 tablet oxyCODONE /ACETAMINOPHEN [Percocet 5/325 mg] 1 tab PO Q6H PRN #14 tablet PRN Reason: Pain, Moderate (4-6)
[2016-11-17] MEDS: FEOSOL PO SCH (10:33)
[2016-11-17] MEDS: PROTONIX PO SCH (10:33)
[2016-11-17] MEDS: K-DUR PO SCH (10:33)
[2016-11-17] MEDS: LOVENOX SUB-Q SCH (10:34)
[2016-11-17] MEDS: PERCOCET 5/325 PO PRN (13:57)
--- NOTE | 2016-11-17 14:16 | Progress Note ---
Subjective Patient Reports: Positive: feels better, flatus, bowel movement Narrative: Doing better pain gone on ampicillin , to see me in 2 weeks US showed large GB stone and a polyp in the GB Objective Vital Signs - 12hr 11/17/16 07:53 Temperature 98.5 F Pulse Rate [ 58 L Right Dorsalis Pedis] Respiratory 16 Rate Blood Pressure 106/68 [Left Arm] O2 Sat by Pulse 98 Oximetry - Labs 11/14/16 04:08 11/15/16 08:21
--- NOTE | 2016-11-17 14:53 | Ultrasound Report ---
ULTRASOUND ABDOMEN LIMITED INDICATION: Pain. COMPARISON: None similar. Correlated to recent CT and MRI findings. FINDINGS: Right upper quadrant ultrasound demonstrates normal hepatic contours and echotexture without focal suspicious lesion or biliary dilatation. Approximately 1 cm shadowing possible gallstone near the gallbladder neck, image 58. Another 6-7 mm non-shadowing gallbladder polyp possible, image 71. No pericholecystic fluid or positive sonographic Benson sign. Gallbladder wall thickness is 2.6 mm. Common bile duct is 2.1 mm. Visualized pancreas, IVC and abdominal aorta within normal limits. Nonhydronephrotic right kidney measures 11.2 x 4.3 x 5.1 cm with cortical thickness of 1.6 cm. Subtle 1.6 cm right upper renal cortical lesion not well identified sonographically. CONCLUSION: 1. No acute right upper quadrant sonographic abnormality with a gallstone and gallbladder polyp suspected, as described. 2. Approximately 1.6 cm right renal cortical lesion known by prior cross sectional imaging not identified sonographically. Its etiology hence not determined on this exam alone and given this limitation, may be followed up in the future with dedicated renal mass protocol CT or MRI. Also, direct comparison with prior abdominal CT or MRI would be very helpful to avoid further workup, if available from an outside institution. Thank you for the opportunity to participate in this patient's care.
== END 2016-11-17 14:00 | disposition home or self-care (01) | DRG 392 ==
LOC: ED 19:34 → 3A 11-13 09:26 → 4A 11-13 14:18 → 3A 11-13 21:03
PROVIDERS: ADMIT Internal Medicine; ATTEND Internal Medicine
DX: R19.00 Intra-abdominal and pelvic swelling, mass and lump, unspecified site (principal); E87.6 Hypokalemia; N73.9 Female pelvic inflammatory disease, unspecified; Z98.51 Tubal ligation status; Z88.8 Allergy status to other drugs, medicaments and biological substances
CPT/HCPCS: 36415; 74177; 74183; 76705; 76830; 76856; 80048; 80053; 81001; 81025; 82550; 83690; 84703; 85007; 85025; 90686; 94760; 96361; 96365; 96372; 96375; 99406; A9577; C9113; J0290; J0696; J1170; J1580; J1650; J2060; J2270; J2405; J3010; J3480; J7030; J7042; J7050; Q9967

== ENCOUNTER 2017-08-03 13:14 | Emergency (ER) | payer SELFPAY ==
[2017-08-03 16:03] LABS: Basophils % (Auto) 0.5 % (0.0-1.8); Eosinophils % (Auto) 3.8 % (0.0-4.3); Hematocrit 32.2 % (30.3-42.9); Hemoglobin 10.1 gm/dl (10.1-14.3); Mean Corpuscular HGB Conc 32 % (30-34); Mean Corpuscular Volume 71 fl (79-97); Platelet Count 302 K/mm3 (140-440); Red Blood Count 4.51 M/mm3 (3.65-5.03); Red Cell Distribution Width 17.9 % (13.2-15.2); White Blood Count 11.1 K/mm3 (4.5-11.0)
[2017-08-03 16:04] LABS: Mean Corpuscular Hemoglobin 22 pg (28-32)
[2017-08-03 16:41] LABS: Alanine Aminotransferase 19 units/L (7-56); Albumin/Globulin Ratio 1.3 %; Alkaline Phosphatase 49 units/L (35-129); Anion Gap 16 mmol/L; BUN/Creatinine Ratio 22; Blood Urea Nitrogen 13 mg/dL (7-17); Calcium 8.8 mg/dL (8.4-10.2); Carbon Dioxide 23 mmol/L (22-30); Chloride 103.6 mmol/L (98-107); Glucose 78 mg/dL (65-100); Potassium 3.9 mmol/L (3.6-5.0); Sodium 139 mmol/L (137-145); Total Protein 7.2 g/dL (6.3-8.2)
--- NOTE | 2017-08-03 16:50 | Cat Scan Report ---
CT HEAD WITHOUT CONTRAST INDICATION: Head injury. COMPARISON: 07/26/2016. FINDINGS: Noncontrast head CT demonstrates normal ventricles and sulci without acute or recent infarct, hemorrhage, mass effect or midline shift. No abnormal extra-axial fluid collections. Posterior fossa structures and basilar cisterns appear within normal limits. Overall improved sinusitis with mild right frontal, right sphenoid and left maxillary sinus mucosal thickening now remaining. Clear remainder imaged paranasal sinuses and mastoid air cells. Intact calvarium. Normal overlying scalp soft tissues. Oral piercing ornament now seen with stable mild to moderate C5-C6 degenerative changes. CONCLUSION: No acute intracranial CT abnormality with few other findings, as described. Thank you for the opportunity to participate in this patient's care.
[2017-08-03 17:21] LABS: Bilirubin,Urine NEG (Negative); Blood,Urine SM (Negative); Ketones,Urine NEG (Negative); Leukocyte Esterase,Urine NEG (Negative); Mucus,Urine 2+ /HPF; Nitrite,Urine NEG (Negative); Protein,Urine <15 mg/dL mg/dL (Negative); Urobilinogen,Urine < 2.0 mg/dL (<2.0); WBC,Urine < 1.0 /HPF (0.0-6.0)
[2017-08-03] MEDS ORDERED: TYLENOL PO ONE (22:28)
[2017-08-03] MEDS ORDERED: TYLENOL ONE (22:30)
[2017-08-04] MEDS ORDERED: TORADOL IM ONE (02:32)
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
[2017-08-04] MEDS ORDERED: VALIUM PO ONE (04:03)
--- NOTE | 2017-08-04 05:13 | Cat Scan Report ---
FINAL REPORT EXAM: CT ABDOMEN PELVIS WO CON HISTORY: TRAUMA TECHNIQUE: Routine axial imaging was obtained of the abdomen pelvis without oral or IV contrast. Comparison is made the study of 11/13/2016. FINDINGS: The lung bases are clear. Pleural fluid is not seen. The liver, gallbladder, pancreas, spleen, and adrenal glands appear normal. The kidneys show no evidence of stones or hydronephrosis. The bowel loops are normal in caliber and course. There is no evidence of free fluid or adenopathy. In the pelvis the uterus and bladder appear normal. The skeletal structures are well-maintained. IMPRESSION: No acute process in the abdomen and pelvis. The previous described lesion in the right kidney cannot be seen without IV contrast and cannot be assessed at this time.
[2017-08-04 05:37] VITALS: BP 115/78
--- NOTE | 2017-08-04 09:15 | XRay Report ---
XRAY RIGHT TIBIA AND FIBULA TWO VIEWS: 08/04/17 CLINICAL: Trauma and pain. FINDINGS: No fracture or dislocation. Normal alignment at the knee and at the ankle. No knee joint effusion. Normal soft tissues.No soft tissue air or foreign body. IMPRESSION: Normal
== END 2017-08-04 05:50 | disposition home or self-care (01) ==
LOC: ED 13:14
DX: S00.03XA Contusion of scalp, initial encounter (principal); S10.93XA Contusion of unspecified part of neck, initial encounter; S20.222A Contusion of left back wall of thorax, initial encounter; S20.221A Contusion of right back wall of thorax, initial encounter; S80.01XA Contusion of right knee, initial encounter; G43.909 Migraine, unspecified, not intractable, without status migrainosus; F12.10 Cannabis abuse, uncomplicated; Z88.8 Allergy status to other drugs, medicaments and biological substances; Y09 Assault by unspecified means; Y93.89 Activity, other specified; Y92.89 Other specified places as the place of occurrence of the external cause; Y99.8 Other external cause status
CPT/HCPCS: 36415; 70450; 73590; 74176; 80053; 81001; 84703; 85025; 96372; 99284; J1885

== ENCOUNTER 2017-10-05 19:02 | Emergency (ER) | payer SELFPAY ==
[2017-10-05] MEDS ORDERED: MOTRIN PO ONE (20:35)
[2017-10-05] MEDS ORDERED: ZOFRAN ODT PO ONE (20:36)
--- NOTE | 2017-10-06 05:18 | Emergency Department Report ---
HPI - General Chief Complaint: Upper Respiratory Infection Time Seen by Provider: 10/06/17 04:42 - HPI HPI: Patient here reports that she isn't having cough, congestion and headache runny nose and body ache. She said she's been having nasal congestion and runny nose for over a week but she started having body aches over the last 3 days with chills. [id number] cough and cold medication does not help. Pain is 10 out of 10 and generalized, achy. Denies any abdominal or back pain. Denies any urinary burning frequency or urgency. Last menstrual period was 2016. She denies any shortness of breath or chest pain. Patient said that she was around someone that was sick who went back to check,. ED Past Medical Hx - Past Medical History Previous Medical History?: Yes Hx Congestive Heart Failure: No Hx Diabetes: No Hx Headaches / Migraines: Yes Hx Psychiatric Treatment: Yes (depression as a child) Hx Asthma: No Hx COPD: No Additional medical history: uri - Surgical History Past Surgical History?: Yes Additional Surgical History: 4 c-sections - Family History Family history: hypertension - Social History Smoking Status: Never Smoker Substance Use Type: None - Medications Home Medications: Home Medications Medication Instructions Recorded Confirmed Last Taken Type Ferrous Sulfate [Feosol 325 MG tab] 325 mg PO QDAY #30 tablet 07/27/16 Unknown Rx Ciprofloxacin HCl [Ciprofloxacin 500 mg PO Q12HR #14 tab 11/17/16 Unknown Rx TAB] Ketorolac [Toradol] 10 mg PO Q6H PRN #14 tablet 11/17/16 Unknown Rx Naproxen [Naprosyn TAB] 500 mg PO BID #30 tablet 11/17/16 Unknown Rx metroNIDAZOLE [Flagyl TAB] 500 mg PO Q12HR #20 tab 11/17/16 Unknown Rx oxyCODONE /ACETAMINOPHEN [Percocet 1 tab PO Q6H PRN #14 tablet 11/17/16 Unknown Rx 5/325 mg] ALBUTEROL Inhaler [ProAir HFA 2 puff IH QID PRN #1 pump 07/26/17 Unknown Rx Inhaler] Acetamin/Codeine 120-12Mg/5 ml 5 ml PO TID PRN #60 ml 07/26/17 Unknown Rx [Tylenol/Codeine] Azithromycin [Zithromax TAB] 250 mg PO ONCE #4 tablet 07/26/17 Unknown Rx Cyclobenzaprine [Flexeril 10 MG 10 mg PO TID PRN #30 tablet 07/26/17 Unknown Rx TAB] Amoxicillin/K Clav Tab [Augmentin 1 tab PO Q12HR 10 Days #20 tab 10/06/17 Unknown Rx 875 mg] Cetirizine HCl [Zyrtec] 10 mg PO QAM 14 Days #14 tablet 10/06/17 Unknown Rx Fluticasone [Flonase] 1 spray NS QDAY 14 Days #1 bottle 10/06/17 Unknown Rx Ibuprofen [Motrin 800 MG tab] 800 mg PO Q8HR PRN 4 Days #12 10/06/17 Unknown Rx tablet Promethazine /Codeine 5 ml PO Q12H PRN 5 Days #50 ml 10/06/17 Unknown Rx [Phenergan/Codeine 6.25-10 mg/5Ml] ED Review of Systems ROS: Stated complaint: FLU LIKE SYMPTOMS Other details as noted in HPI Comment: All other systems reviewed and negative Constitutional: chills, fever Eyes: denies: eye pain, eye discharge ENT: congestion. denies: ear pain, throat pain, dental pain Respiratory: cough. denies: orthopnea, shortness of breath, SOB with exertion, SOB at rest, stridor, wheezing Cardiovascular: denies: chest pain, palpitations, dyspnea on exertion, orthopnea , edema, syncope, paroxysmal nocturnal dyspnea Gastrointestinal: denies: abdominal pain, nausea, vomiting, diarrhea, constipation, hematemesis, melena, hematochezia Genitourinary: denies: urgency, dysuria, frequency, hematuria, discharge Musculoskeletal: myalgia. denies: back pain, joint swelling, arthralgia Skin: denies: rash Neurological: headache. denies: weakness, numbness, paresthesias, confusion, abnormal gait, vertigo Physical Exam - Physical Exam Vital Signs: Vital Signs 10/05/17 10/06/17 20:29 02:14 Temperature 99.7 F H 98.9 F Pulse Rate 100 H Respiratory 20 Rate Blood Pressure 125/93 O2 Sat by Pulse 100 Oximetry General: This is a 32-year-old female well-nourished well-developed in no acute distress. Physical Exam: Head: Normocephalic atraumatic Ears:BIateral TM congested without erythema and loss of bony landmarks. Baldev EAC with normal exam. No mastoid bone tenderness. Mouth: Moist, no pharyngeal erythema or exudate . No tonsillar erythema or exudate. UVULA midline and oral airways patent. No peritonsillar abscess Neck: Nontender to palpate, supple, normal range of motion. No adenopathy. No c- spine tenderness. Nose: Bilateral nasal mucosa congested , erythema with clear drainage. Maxillary and frontal sinuses tender to palpate. Extremity: No clubbing, cyanosis or edema. +2 pulses all extremities. No neurovascular compromise Eyes: Sclerae and conjunctiva without injection. Bilateral pupils equal and reactive to light. Bilateral lids are normal. Normal accommodation.BEOMI Lungs: Clear to auscultate bilaterally, no rhonchi wheezes or rales. Normal work of breathing and no chest wall tenderness. Dry cough CV: S1, S2. Regular rate and rhythm negative murmur. Capillary refill is less than 3 seconds Skin: Clean dry and intact, no rashes or lesions Psych: Normal mood and behavior ED Course Vital Signs 10/05/17 10/06/17 20:29 02:14 Temperature 99.7 F H 98.9 F Pulse Rate 100 H Respiratory 20 Rate Blood Pressure 125/93 O2 Sat by Pulse 100 Oximetry - Reevaluation(s) Reevaluation #1: 10/06/17 06:05 Patient given Zofran 8 mg ODT and Motrin 800 mg while in the emergency room. Her fever is not down to 98.9 .patient able to tolerate oral liquids without any difficulties. She denies any pain at present. ED Medical Decision Making - Lab Data Influenza A and B- - Medical Decision Making ED course: This is a 32-year-old female well-nourished well-developed in no acute distress. Patient here complaining of flulike symptoms. Influenza A and B is negative. Patient found to have acute sinusitis which I believe started off as viral but now is bacterial due to fever and tenderness to palpate at maxillary and frontal sinuses. Patient lungs sounds are clear and she is not having any respiratory distress. I discussed with the patient her diagnosis, treatment plan and follow-up and she voiced understanding. Patient given Motrin 800 mg by mouth and Zofran 8 mg ODT with relief of symptoms. Discharged home with her family with prescription for Augmentin, Flonase, Zyrtec and promethazine with codeine. Critical care attestation.: If time is entered above; I have spent that time in minutes in the direct care of this critically ill patient, excluding procedure time. ED Disposition Clinical Impression: Cough in adult, Fever in adult Sinusitis, acute Qualifiers: Sinusitis location: unspecified location Recurrence: recurrent Qualified Code(s ): J01.91 - Acute recurrent sinusitis, unspecified Disposition: - TO HOME OR SELFCARE Is pt being admited?: No Does the pt Need Aspirin: No Condition: Stable Instructions: Sinusitis (ED), Fever in Adults (ED), Acute Cough (ED) Additional Instructions: Please increase her fluid intake to 2-3 L of fluid per day. Should include orange juice and water. These refrain from drinking soda take antibiotic as takes Zyrtec and Flonase to help relieve congestion take Motrin and this will help with fever and body ache Please do not drive or operate heavy machinery while taken codeine with Phenergan as this medication causes drowsiness F/U with primary care physician as instructed and if he do not have a primary care your can follow-up at [facility] in 3-5 days and her take Motrin Prescriptions: Amoxicillin/K Clav Tab [Augmentin 875 mg] 1 tab PO Q12HR 10 Days #20 tab Cetirizine HCl [Zyrtec] 10 mg PO QAM 14 Days #14 tablet Fluticasone [Flonase] 1 spray NS QDAY 14 Days #1 bottle Ibuprofen [Motrin 800 MG tab] 800 mg PO Q8HR PRN 4 Days #12 tablet PRN Reason: Pain Promethazine /Codeine [Phenergan/Codeine 6.25-10 mg/5Ml] 5 ml PO Q12H PRN 5 Days #50 ml PRN Reason: cough Referrals: [facility] [Outside] - 3-5 Days Forms: Accompanied Note, Work/School Release Form(ED)
[2017-10-06 06:12] VITALS: BP 93/67
== END 2017-10-06 06:30 | disposition home or self-care (01) ==
LOC: ED 19:02
DX: J01.91 Acute recurrent sinusitis, unspecified (principal); G43.909 Migraine, unspecified, not intractable, without status migrainosus; F32.9 Major depressive disorder, single episode, unspecified; Z88.8 Allergy status to other drugs, medicaments and biological substances; Z98.890 Other specified postprocedural states
CPT/HCPCS: 87400; 99282; Q0162

== ENCOUNTER 2017-10-07 00:56 | Emergency (ER) | payer SELFPAY ==
[2017-10-07 01:38] VITALS: BP 102/70
[2017-10-07 07:51] LABS: Bilirubin,Urine NEG (Negative); Blood,Urine NEG (Negative); Color,Urine Yellow (Yellow); Mucus,Urine 1+ /HPF; Nitrite,Urine NEG (Negative); Protein,Urine <15 mg/dL mg/dL (Negative); Urobilinogen,Urine < 2.0 mg/dL (<2.0)
[2017-10-07 08:03] LABS: HCG Qualitative,Urine Negative (Negative)
[2017-10-07] MEDS ORDERED: TORADOL IM ONE (08:31)
[2017-10-07] MEDS ORDERED: TORADOL ONE (08:37)
--- NOTE | 2017-10-07 09:13 | Cat Scan Report ---
FINAL REPORT EXAM: CT ABDOMEN PELVIS WO CON HISTORY: flank pain TECHNIQUE: CT images obtained through the Abdomen and Pelvis without contrast. Transaxial,coronal and sagittal reformats are provided. PRIORS: 08/04/2017 FINDINGS: Imaged intrathoracic contents are unremarkable. Kidneys are normal in size, axis and position. No hydronephrosis or nephrolithiasis. The ureters are normal in course and caliber. No stones are seen within the urinary bladder. Pelvic phleboliths are noted. The liver, gallbladder, pancreas, spleen, and adrenal glands demonstrate a normal noncontrast appearance. Hollow enteric organs are normal in course and caliber. Appendix is normal. No intra-abdominal free air/fluid or lymphadenopathy. Aorta is normal in course and caliber. Anteverted uterus. Trace free fluid in the pelvis is likely physiologic. Superficial soft tissues are unremarkable. No acute or aggressive appearing skeletal findings. IMPRESSION: No CT evidence of obstructive urolithiasis or other acute abdominal or pelvic findings. Free fluid in the pelvis is likely physiologic. If there is concern for gynecologic etiology of patient's symptoms, consider follow-up pelvic ultrasound.
--- NOTE | 2017-10-07 11:24 | Emergency Department Report ---
ED General Adult HPI - General Chief complaint: Back Pain/Injury Stated complaint: ABDOMINAL,BACK PAIN Time Seen by Provider: 10/07/17 08:25 Source: patient Mode of arrival: Ambulatory Limitations: No Limitations - History of Present Illness Initial comments: Patient is a 32-year-old female who is presenting with back pain. Patient states that she was here yesterday diagnosed with upper respiratory infection/sinus infection. Patient did get her prescriptions filled. Patient states that over the last 24 hours she has developed some increased back pain and flank pain. Patient states pain is 7 out of 10 in severity as a sharp aching pain. Patient denies any nausea vomiting diarrhea or dysuria vaginal discharge at this time. Patient does note that she has a history of gallstones she is hurting bilateral flanks. Severity scale (0 -10): 10 Improves with: none Worsens with: none - Related Data Previous Rx's Medication Instructions Recorded Last Taken Type Ferrous Sulfate [Feosol 325 MG tab] 325 mg PO QDAY #30 tablet 07/27/16 Unknown Rx Ciprofloxacin HCl [Ciprofloxacin 500 mg PO Q12HR #14 tab 11/17/16 Unknown Rx TAB] Ketorolac [Toradol] 10 mg PO Q6H PRN #14 tablet 11/17/16 Unknown Rx Naproxen [Naprosyn TAB] 500 mg PO BID #30 tablet 11/17/16 Unknown Rx metroNIDAZOLE [Flagyl TAB] 500 mg PO Q12HR #20 tab 11/17/16 Unknown Rx oxyCODONE /ACETAMINOPHEN [Percocet 1 tab PO Q6H PRN #14 tablet 11/17/16 Unknown Rx 5/325 mg] ALBUTEROL Inhaler [ProAir HFA 2 puff IH QID PRN #1 pump 07/26/17 Unknown Rx Inhaler] Acetamin/Codeine 120-12Mg/5 ml 5 ml PO TID PRN #60 ml 07/26/17 Unknown Rx [Tylenol/Codeine] Azithromycin [Zithromax TAB] 250 mg PO ONCE #4 tablet 07/26/17 Unknown Rx Cyclobenzaprine [Flexeril 10 MG 10 mg PO TID PRN #30 tablet 07/26/17 Unknown Rx TAB] Amoxicillin/K Clav Tab [Augmentin 1 tab PO Q12HR 10 Days #20 tab 10/06/17 Unknown Rx 875 mg] Cetirizine HCl [Zyrtec] 10 mg PO QAM 14 Days #14 tablet 10/06/17 Unknown Rx Fluticasone [Flonase] 1 spray NS QDAY 14 Days #1 bottle 10/06/17 Unknown Rx Ibuprofen [Motrin 800 MG tab] 800 mg PO Q8HR PRN 4 Days #12 10/06/17 Unknown Rx tablet Promethazine /Codeine 5 ml PO Q12H PRN 5 Days #50 ml 10/06/17 Unknown Rx [Phenergan/Codeine 6.25-10 mg/5Ml] Ibuprofen [Motrin] 800 mg PO Q8HR PRN #15 tablet 10/07/17 Unknown Rx traMADol [Ultram] 50 mg PO Q6HR PRN #12 tablet 10/07/17 Unknown Rx Allergies Allergy/AdvReac Type Severity Reaction Status Date / Time chlorpromazine HCl Allergy Swelling Verified 07/25/17 21:07 [From Thorazine] ED Review of Systems ROS: Stated complaint: ABDOMINAL,BACK PAIN Other details as noted in HPI Comment: All other systems reviewed and negative ED Past Medical Hx - Past Medical History Hx Congestive Heart Failure: No Hx Diabetes: No Hx Headaches / Migraines: Yes Hx Psychiatric Treatment: Yes (depression as a child) Hx Asthma: No Hx COPD: No Additional medical history: uri - Surgical History Additional Surgical History: 4 c-sections - Social History Smoking Status: Never Smoker - Medications Home Medications: Home Medications Medication Instructions Recorded Confirmed Last Taken Type Ferrous Sulfate [Feosol 325 MG tab] 325 mg PO QDAY #30 tablet 07/27/16 Unknown Rx Ciprofloxacin HCl [Ciprofloxacin 500 mg PO Q12HR #14 tab 11/17/16 Unknown Rx TAB] Ketorolac [Toradol] 10 mg PO Q6H PRN #14 tablet 11/17/16 Unknown Rx Naproxen [Naprosyn TAB] 500 mg PO BID #30 tablet 11/17/16 Unknown Rx metroNIDAZOLE [Flagyl TAB] 500 mg PO Q12HR #20 tab 11/17/16 Unknown Rx oxyCODONE /ACETAMINOPHEN [Percocet 1 tab PO Q6H PRN #14 tablet 11/17/16 Unknown Rx 5/325 mg] ALBUTEROL Inhaler [ProAir HFA 2 puff IH QID PRN #1 pump 07/26/17 Unknown Rx Inhaler] Acetamin/Codeine 120-12Mg/5 ml 5 ml PO TID PRN #60 ml 07/26/17 Unknown Rx [Tylenol/Codeine] Azithromycin [Zithromax TAB] 250 mg PO ONCE #4 tablet 07/26/17 Unknown Rx Cyclobenzaprine [Flexeril 10 MG 10 mg PO TID PRN #30 tablet 07/26/17 Unknown Rx TAB] Amoxicillin/K Clav Tab [Augmentin 1 tab PO Q12HR 10 Days #20 tab 10/06/17 Unknown Rx 875 mg] Cetirizine HCl [Zyrtec] 10 mg PO QAM 14 Days #14 tablet 10/06/17 Unknown Rx Fluticasone [Flonase] 1 spray NS QDAY 14 Days #1 bottle 10/06/17 Unknown Rx Ibuprofen [Motrin 800 MG tab] 800 mg PO Q8HR PRN 4 Days #12 10/06/17 Unknown Rx tablet Promethazine /Codeine 5 ml PO Q12H PRN 5 Days #50 ml 10/06/17 Unknown Rx [Phenergan/Codeine 6.25-10 mg/5Ml] Ibuprofen [Motrin] 800 mg PO Q8HR PRN #15 tablet 10/07/17 Unknown Rx traMADol [Ultram] 50 mg PO Q6HR PRN #12 tablet 10/07/17 Unknown Rx ED Physical Exam - General Limitations: No Limitations General appearance: alert, in no apparent distress - Head Head exam: Present: atraumatic, normocephalic - Eye Eye exam: Present: normal appearance - ENT ENT exam: Present: mucous membranes moist - Neck Neck exam: Present: normal inspection - Respiratory Respiratory exam: Present: normal lung sounds bilaterally. Absent: respiratory distress - Cardiovascular Cardiovascular Exam: Present: regular rate, normal rhythm. Absent: systolic murmur, diastolic murmur, rubs, gallop - GI/Abdominal GI/Abdominal exam: Present: soft, normal bowel sounds - Extremities Exam Extremities exam: Present: normal inspection - Back Exam Back exam: Present: normal inspection - Neurological Exam Neurological exam: Present: alert, oriented X3 - Psychiatric Psychiatric exam: Present: normal affect, normal mood - Skin Skin exam: Present: warm, dry, intact, normal color. Absent: rash ED Course Vital Signs 10/07/17 10/07/17 01:14 01:35 Temperature 98.9 F 98.9 F Pulse Rate 99 H 102 H Respiratory 18 17 Rate Blood Pressure 102/72 102/70 O2 Sat by Pulse 98 99 Oximetry ED Medical Decision Making - Radiology Data Radiology results: report reviewed CT abdomen and pelvis without contrast is negative for obstructive uropathy or other acute pathology at this time Critical care attestation.: If time is entered above; I have spent that time in minutes in the direct care of this critically ill patient, excluding procedure time. ED Disposition Clinical Impression: Myalgia Disposition: - TO HOME OR SELFCARE Is pt being admited?: No Does the pt Need Aspirin: No Condition: Stable Instructions: Musculoskeletal Pain (ED) Prescriptions: Ibuprofen [Motrin] 800 mg PO Q8HR PRN #15 tablet PRN Reason: Pain traMADol [Ultram] 50 mg PO Q6HR PRN #12 tablet PRN Reason: Pain Referrals: RAYNA BYRNES MD [Primary Care Provider] - 3-5 Days
== END 2017-10-07 12:00 | disposition home or self-care (01) ==
LOC: ED 00:56
DX: M79.1 Myalgia (principal); G43.909 Migraine, unspecified, not intractable, without status migrainosus; F32.9 Major depressive disorder, single episode, unspecified
CPT/HCPCS: 74176; 81001; 81025; 96372; 99284; J1885

== ENCOUNTER 2021-07-27 13:23 | Emergency (ER) | payer SELFPAY ==
[2021-07-27] MEDS ORDERED: ALBUTEROL 2.5 MG/3 ML NEBU IH ONE (13:49)
[2021-07-27] MEDS ORDERED: methylPREDNISolone Sod Succinate 125 MG/2 ML INJ IM ONE (13:49)
--- NOTE | 2021-07-27 16:45 | Emergency Department Report ---
ED General Adult HPI - General Chief complaint: Upper Respiratory Infection Stated complaint: SINUS INFECTION Time Seen by Provider: 07/27/21 13:48 Source: patient Mode of arrival: Ambulatory Limitations: No Limitations - History of Present Illness Initial comments: 35-year-old female admitted to vaginosis emerge department complaining of a few day history of progressively worsening cough cold congestion and now increased nasal pressure, productive cough and occasional wheezing. Reports no hemoptysis no hematemesis hematochezia, no nausea, no vomiting, no diarrhea. No known contact with the coronavirus but states that she is out of her asthma medication at home as well. Quality: dull Consistency: constant Improves with: none Worsens with: none Associated Symptoms: cough. denies: chest pain, malaise, syncope, weakness Treatments Prior to Arrival: none - Related Data Previous Rx's Medication Instructions Recorded Last Taken Type Ferrous Sulfate [Feosol 325 MG tab] 325 mg PO QDAY #30 tablet 07/27/16 Unknown Rx Ciprofloxacin HCl [Ciprofloxacin 500 mg PO Q12HR #14 tab 11/17/16 Unknown Rx TAB] Ketorolac [Toradol] 10 mg PO Q6H PRN #14 tablet 11/17/16 Unknown Rx Naproxen [Naprosyn TAB] 500 mg PO BID #30 tablet 11/17/16 Unknown Rx metroNIDAZOLE [Flagyl TAB] 500 mg PO Q12HR #20 tab 11/17/16 Unknown Rx oxyCODONE /ACETAMINOPHEN [Percocet 1 tab PO Q6H PRN #14 tablet 11/17/16 Unknown Rx 5/325 mg] Acetamin/Codeine 120-12Mg/5 ml 5 ml PO TID PRN #60 ml 07/26/17 Unknown Rx [Tylenol/Codeine] Albuterol Mdi (or & Nicu Only) 2 puff IH QID PRN #1 pump 07/26/17 Unknown Rx [ProAir HFA Inhaler] Azithromycin [Zithromax TAB] 250 mg PO ONCE #4 tablet 07/26/17 Unknown Rx Cyclobenzaprine [Flexeril 10 MG 10 mg PO TID PRN #30 tablet 07/26/17 Unknown Rx TAB] Amoxicillin/K Clav Tab [Augmentin 1 tab PO Q12HR 10 Days #20 tab 10/06/17 Unknown Rx 875 mg] Cetirizine HCl [Zyrtec 10mg tab] 10 mg PO QAM 14 Days #14 tablet 10/06/17 Unknown Rx Fluticasone [Flonase] 1 spray NS QDAY 14 Days #1 bottle 10/06/17 Unknown Rx Ibuprofen [Motrin 800 MG tab] 800 mg PO Q8HR PRN 4 Days #12 10/06/17 Unknown Rx tablet Promethazine /Codeine 5 ml PO Q12H PRN 5 Days #50 ml 10/06/17 Unknown Rx [Phenergan/Codeine 6.25-10 mg/5Ml] Ibuprofen [Motrin] 800 mg PO Q8HR PRN #15 tablet 10/07/17 Unknown Rx traMADoL [Ultram] 50 mg PO Q6HR PRN #12 tablet 10/07/17 Unknown Rx Albuterol Mdi (or & Nicu Only) 2 puff IH QID PRN #1 inhalation 07/27/21 Unknown Rx [ProAir HFA Inhaler] Benzonatate [Tessalon Perles] 100 mg PO Q8HR #20 capsule 07/27/21 Unknown Rx Montelukast [Singulair] 10 mg PO QPM #14 tablet 07/27/21 Unknown Rx predniSONE [Deltasone] 50 mg PO QDAY #5 tab 07/27/21 Unknown Rx Allergies Allergy/AdvReac Type Severity Reaction Status Date / Time chlorpromazine HCl Allergy Swelling Verified 07/25/17 21:07 [From Thorazine] promethazine AdvReac Unknown Verified 07/27/21 13:46 ED Review of Systems ROS: Stated complaint: SINUS INFECTION Other details as noted in HPI Comment: All other systems reviewed and negative ED Past Medical Hx - Past Medical History Hx Congestive Heart Failure: No Hx Diabetes: No Hx Headaches / Migraines: Yes Hx Psychiatric Treatment: Yes (depression as a child) Hx Asthma: No Hx COPD: No Additional medical history: uri - Surgical History Additional Surgical History: 4 c-sections - Social History Smoking Status: Never Smoker - Medications Home Medications: Home Medications Medication Instructions Recorded Confirmed Last Taken Type Ferrous Sulfate [Feosol 325 MG tab] 325 mg PO QDAY #30 tablet 07/27/16 Unknown Rx Ciprofloxacin HCl [Ciprofloxacin 500 mg PO Q12HR #14 tab 11/17/16 Unknown Rx TAB] Ketorolac [Toradol] 10 mg PO Q6H PRN #14 tablet 11/17/16 Unknown Rx Naproxen [Naprosyn TAB] 500 mg PO BID #30 tablet 11/17/16 Unknown Rx metroNIDAZOLE [Flagyl TAB] 500 mg PO Q12HR #20 tab 11/17/16 Unknown Rx oxyCODONE /ACETAMINOPHEN [Percocet 1 tab PO Q6H PRN #14 tablet 11/17/16 Unknown Rx 5/325 mg] Acetamin/Codeine 120-12Mg/5 ml 5 ml PO TID PRN #60 ml 07/26/17 Unknown Rx [Tylenol/Codeine] Albuterol Mdi (or & Nicu Only) 2 puff IH QID PRN #1 pump 07/26/17 Unknown Rx [ProAir HFA Inhaler] Azithromycin [Zithromax TAB] 250 mg PO ONCE #4 tablet 07/26/17 Unknown Rx Cyclobenzaprine [Flexeril 10 MG 10 mg PO TID PRN #30 tablet 07/26/17 Unknown Rx TAB] Amoxicillin/K Clav Tab [Augmentin 1 tab PO Q12HR 10 Days #20 tab 10/06/17 Unknown Rx 875 mg] Cetirizine HCl [Zyrtec 10mg tab] 10 mg PO QAM 14 Days #14 tablet 10/06/17 Unknown Rx Fluticasone [Flonase] 1 spray NS QDAY 14 Days #1 bottle 10/06/17 Unknown Rx Ibuprofen [Motrin 800 MG tab] 800 mg PO Q8HR PRN 4 Days #12 10/06/17 Unknown Rx tablet Promethazine /Codeine 5 ml PO Q12H PRN 5 Days #50 ml 10/06/17 Unknown Rx [Phenergan/Codeine 6.25-10 mg/5Ml] Ibuprofen [Motrin] 800 mg PO Q8HR PRN #15 tablet 10/07/17 Unknown Rx traMADoL [Ultram] 50 mg PO Q6HR PRN #12 tablet 10/07/17 Unknown Rx Albuterol Mdi (or & Nicu Only) 2 puff IH QID PRN #1 inhalation 07/27/21 Unknown Rx [ProAir HFA Inhaler] Benzonatate [Tessalon Perles] 100 mg PO Q8HR #20 capsule 07/27/21 Unknown Rx Montelukast [Singulair] 10 mg PO QPM #14 tablet 07/27/21 Unknown Rx predniSONE [Deltasone] 50 mg PO QDAY #5 tab 07/27/21 Unknown Rx ED Physical Exam - General Limitations: No Limitations General appearance: alert, in no apparent distress - Head Head exam: Present: atraumatic, normocephalic - Eye Eye exam: Present: normal appearance - ENT ENT exam: Present: mucous membranes moist - Neck Neck exam: Present: normal inspection - Respiratory Respiratory exam: Present: normal lung sounds bilaterally, wheezes, rhonchi. Absent: respiratory distress, accessory muscle use, decreased breath sounds - Cardiovascular Cardiovascular Exam: Present: regular rate, normal rhythm. Absent: bradycardia, tachycardia, systolic murmur, diastolic murmur, rubs, gallop - GI/Abdominal GI/Abdominal exam: Present: soft, normal bowel sounds. Absent: tenderness, guarding, hypoactive bowel sounds, organomegaly, mass, bruit - Extremities Exam Extremities exam: Present: normal inspection, full ROM, normal capillary refill - Back Exam Back exam: Present: normal inspection. Absent: CVA tenderness (R), CVA tenderness (L) - Neurological Exam Neurological exam: Present: alert, oriented X3, CN II-XII intact, normal gait - Psychiatric Psychiatric exam: Present: normal affect, normal mood. Absent: anxious, flat affect - Skin Skin exam: Present: warm, dry, intact, normal color. Absent: rash, diaphoretic, erythema ED Medical Decision Making - Medical Decision Making No altered mental status, saddle respirations, belly breathing or other signs of impending ventilatory failure. No intubations or recent admissions to the hospital for asthma. Unlikely pneumonia, CHF, COPD, GERD Workup Review include a chest x-ray which was normal she also received steroids and albuterol Therapies: Solu-Medrol 125 IM Albuterol nebulizer Reassessment: Patient improved with albuterol and and steroid in less than 3 hours. Disposition: Discharge home with return precautions. Advised to follow up with primary care physician within next 24-48 hours. Aside from this acute exacerbation patient has been well controlled on baseline home regimen. Rx short steroid course, albuterol, Singulair, Flovent This patient presents with symptoms suspicious for likely viral upper respiratory tract infection. Differential includes bacterial pneumonia, sinusitis, allergic rhinitis,. Do not suspect underlying Cardiopulmonary process. I considered but think unlikely dangerous cause of this patient symptoms to include acute coronary syndrome, CHF or COPD exacerbations, pneumonia, pneumothorax. Patient is nontoxic appearing and not in need of emergent medical intervention. Plan: Reassurance, reassessment, [id number] medications, discharge with PCP follow-up Critical care attestation.: If time is entered above; I have spent that time in minutes in the direct care of this critically ill patient, excluding procedure time. ED Disposition Clinical Impression: Cough, Asthma, Bronchitis Disposition: 01 HOME / SELF CARE / HOMELESS Is pt being admited?: No Does the pt Need Aspirin: No Condition: Stable Instructions: Asthma (ED), Chronic Bronchitis (ED), How to Use a Nebulizer, Adult, Asthma, Adult, [id number], Cool Mist Vaporizer, Bronchospasm, Adult, Asthma, Adult, Peak Flow Meter, Cough, Adult, Upper Respiratory Infection, Adult Referrals: [facility] [Provider Group] - 3-5 Days
== END 2021-07-27 18:09 | disposition home or self-care (01) ==
LOC: ED 13:23
DX: J45.909 Unspecified asthma, uncomplicated (principal)
CPT/HCPCS: 94644; 96372; 99282; J2930

== ENCOUNTER 2021-08-23 13:30 | Emergency (ER) | payer BC ==
[2021-08-23 14:02] VITALS: BP 142/73
[2021-08-23] MEDS ORDERED: HYOSCYAMINE SUBL 0.125 MG TAB SL ONE (16:21)
--- NOTE | 2021-08-23 16:24 | Emergency Department Report ---
ED Abdominal Pain HPI - General Chief Complaint: Abdominal Pain Stated Complaint: back pain Time Seen by Provider: 08/23/21 15:09 Source: patient Mode of arrival: Ambulatory Limitations: No Limitations - History of Present Illness Initial Comments: Patient presents with abdominal pain and back pain. This been predominantly right-sided. It has spread to the left side. She states that the right-sided symptoms have been waxing and waning for at least a month. The left-sided symptoms started over the last 2 days. The symptoms actually woke her today and she decided to come in to get seen because the pain woke her up. That was unusual for her. There has been no nausea vomiting. She has reported subjective fevers over the last couple of days. She does report urinary frequency and urgency and discomfort. She has taken [id number] medication without symptomatic improvement. She has not been on antibiotics lately. There is no vaginal bleeding or discharge. - Related Data Previous Rx's Medication Instructions Recorded Last Taken Type Fluticasone [Flonase] 1 spray NS QDAY 14 Days #1 bottle 10/06/17 Unknown Rx Albuterol Mdi (or & Nicu Only) 2 puff IH QID PRN #1 inhalation 07/27/21 Unknown Rx [ProAir HFA Inhaler] Montelukast [Singulair] 10 mg PO QPM #14 tablet 07/27/21 Unknown Rx Ibuprofen [Motrin 800 MG tab] 800 mg PO Q8HR PRN 4 Days #12 08/23/21 Unknown Rx tablet cephALEXin [Keflex] 500 mg PO Q8HR #21 cap 08/23/21 Unknown Rx Allergies Allergy/AdvReac Type Severity Reaction Status Date / Time chlorpromazine HCl Allergy Swelling Verified 07/25/17 21:07 [From Thorazine] promethazine AdvReac Unknown Verified 07/27/21 13:46 ED Review of Systems ROS: Stated complaint: back pain Other details as noted in HPI Comment: All other systems reviewed and negative Constitutional: fever (Subjective) Eyes: denies: vision change ENT: denies: throat pain Respiratory: denies: cough Cardiovascular: denies: chest pain Endocrine: denies: unexplained weight loss Gastrointestinal: as per HPI Genitourinary: as per HPI Musculoskeletal: as per HPI Skin: denies: rash Neurological: denies: headache Hematological/Lymphatic: denies: easy bruising ED Past Medical Hx - Past Medical History Hx Congestive Heart Failure: No Hx Diabetes: No Hx Headaches / Migraines: Yes Hx Psychiatric Treatment: Yes (depression as a child) Hx Asthma: Yes Hx COPD: No Additional medical history: uri - Surgical History Additional Surgical History: 4 c-sections - Family History Family history: no significant - Social History Smoking Status: Never Smoker - Medications Home Medications: Home Medications Medication Instructions Recorded Confirmed Last Taken Type Fluticasone [Flonase] 1 spray NS QDAY 14 Days #1 bottle 10/06/17 Unknown Rx Albuterol Mdi (or & Nicu Only) 2 puff IH QID PRN #1 inhalation 07/27/21 Unknown Rx [ProAir HFA Inhaler] Montelukast [Singulair] 10 mg PO QPM #14 tablet 07/27/21 Unknown Rx Ibuprofen [Motrin 800 MG tab] 800 mg PO Q8HR PRN 4 Days #12 08/23/21 Unknown Rx tablet cephALEXin [Keflex] 500 mg PO Q8HR #21 cap 08/23/21 Unknown Rx ED Physical Exam - General Limitations: No Limitations, Other (Pulse ox noted and normal) General appearance: alert, in no apparent distress - Head Head exam: Present: atraumatic, normocephalic - Eye Eye exam: Present: normal appearance, EOMI. Absent: scleral icterus - ENT ENT exam: Present: normal exam, normal orophraynx - Neck Neck exam: Present: normal inspection. Absent: meningismus - Respiratory Respiratory exam: Present: normal lung sounds bilaterally. Absent: respiratory distress - Cardiovascular Cardiovascular Exam: Present: regular rate, normal rhythm - GI/Abdominal GI/Abdominal exam: Present: soft, tenderness (Suprapubic). Absent: guarding, rebound - Extremities Exam Extremities exam: Present: normal capillary refill. Absent: calf tenderness - Back Exam Back exam: Present: CVA tenderness (R), CVA tenderness (L) - Neurological Exam Neurological exam: Present: alert, oriented X3, CN II-XII intact, reflexes normal. Absent: motor sensory deficit - Psychiatric Psychiatric exam: Present: normal affect, normal mood - Skin Skin exam: Present: warm, dry ED Course Vital Signs 08/23/21 14:01 Temperature 98.7 F Pulse Rate 94 H Respiratory 16 Rate Blood Pressure 142/73 [Right] O2 Sat by Pulse 100 Oximetry - Reevaluation(s) Reevaluation #1: 08/23/21 16:24 Labs ordered. Old records reviewed. Reevaluation #2: 08/23/21 17:37 UA was noted. Patient was treated and released. ED Medical Decision Making - Medical Decision Making Patient presents with abdominal pain and back pain. So this seems to be chronic. However she does have symptoms of urinary tract infection and has evidence of urine tract infection with CVA tenderness. This would be consistent with pyelonephritis. She reports subjective fevers. She has been taken [id number] medication which would help with fever control. She certainly does not appear to be toxic. She does not appear to be septic. hCG was noted and negative. She is not . She will be treated empirically with antibiotics and outpatient referral. There is no peritoneal finding on abd ominal exam. Critical Care Time: No Critical care attestation.: If time is entered above; I have spent that time in minutes in the direct care of this critically ill patient, excluding procedure time. ED Disposition Clinical Impression: Pyelonephritis Disposition: 01 HOME / SELF CARE / HOMELESS Is pt being admited?: No Condition: Stable Instructions: Pyelonephritis, Adult, [id number], Abdominal Pain (ED) Additional Instructions: DRINK WATER. TAKE THE ANTIBIOTICS. RETURN FOR PROBLEMS. SEE YOUR DOCTOR FOR RECHECK. Prescriptions: cephALEXin [Keflex] 500 mg PO Q8HR #21 cap Ibuprofen [Motrin 800 MG tab] 800 mg PO Q8HR PRN 4 Days #12 tablet PRN Reason: Pain Referrals: MELIDA PEREZ MD [Primary Care Provider] - 3-5 Days VENU WEST MD [Staff Physician] - 3-5 Days
[2021-08-23 17:13] LABS: Bacteria,Urine 1+ /HPF (Negative); Bilirubin,Urine NEG (Negative); Blood,Urine NEG (Negative); Color,Urine Yellow (Yellow); Mucus,Urine 1+ /HPF; Protein,Urine <15 mg/dL mg/dL (Negative); Urobilinogen,Urine < 2.0 mg/dL (<2.0)
[2021-08-23 17:17] LABS: HCG Qualitative,Urine Negative (Negative)
[2021-08-23] MEDS ORDERED: cephALEXin 500 MG CAP PO ONE (17:20)
== END 2021-08-23 17:43 | disposition home or self-care (01) ==
LOC: ED 13:30
DX: N12 Tubulo-interstitial nephritis, not specified as acute or chronic (principal); J45.909 Unspecified asthma, uncomplicated; G43.909 Migraine, unspecified, not intractable, without status migrainosus
CPT/HCPCS: 81001; 81025; 99283